=== PATIENT | male | born 1980 | race Hispanic/Latino ===

== ENCOUNTER 2017-05-15 13:59 | Outpatient (CLI) | payer OTHER ==
--- NOTE | 2017-05-15 16:54 | RAD ---
THORACIC SPINE THREE VIEWS: 05/15/17 HISTORY: 37-year-old male with disability SSI pain. History of osteomyelitis infection six years ago. Thoracic spine pain. Metal plate and screws and postoperative fixation changes are noted involving the thorac ic spine. No overt malalignment. No prior films available for comparison. IMPRESSION: Extensive postoperative changes of the thoracic spine. No overt malalignment. No acute fracture. POS: [facility]
== END 2017-05-15 14:00 | disposition home or self-care (01) ==
LOC: NAV RAD 13:59
PROVIDERS: ATTEND Family Medicine
DX: M54.9 Dorsalgia, unspecified (principal); Z98.890 Other specified postprocedural states
CPT/HCPCS: 72072